=== PATIENT | female | born 1990 | race African-American/Black ===

== ENCOUNTER 2025-01-01 04:48 | Inpatient (IN) | payer MEDICAID, OTHER ==
[~2025-01-01] VITALS: Ht 170.2 cm; Wt 63.0 kg
[2025-01-01] MEDS: SODIUM CHLORIDE 0.9% 1,000 ML IVB ONE (05:00)
[2025-01-01] MEDS: ONDANSETRON HCL 4 MG/2 ML VIAL IV ONE (05:00)
--- NOTE | 2025-01-01 05:12 | ED.PDOC ---
History of Present Illness HPI Comments 34-year-old female is brought in by ambulance from prior residents for chief complaint of abdominal pain. Patient endorses on one-week history of pain following initial, unprovoked and atraumatic onset. Pain, suddenly, worsened this morning and radiates to her back. Associated nausea, 1x episode of vomiti ng, and diarrhea. History of similar pain with 'inflammation of the colon' diagnosis 1x year ago Significant history for hypertension-noncompliance with medications, open heart surgery in 2010, and hysterectomy and family history of cancer and hypertension. Per EMS personnel report, patient was found on scene with blood glucose of 84 and a systolic pressure in the 180s. All remaining vitals were noted to have been stable and within normal limits. Patient denies having any bloody or bilious vomitus, bloody stools, constipation, urinary problems, or further acute symptoms at this time. 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 Family History Family History: Reviewed,noncontributory to illness, No family hx of Cancer, No family hx of Heart misti, No family hx ofKidney misti, No family hx of Liver misti, No family hx of Lung misti, No family hx of Stroke, Family hx of Cancer, Family hx of HTN Social History Smoker: Non-Smoker Alcohol: Occasionally Drugs: Denies Drug Use Lives In: Home Constitutional: denies: chills, diaphoresis, fatigue, fever, malaise, sweats, weakness, others EENTM: denies: blurred vision, double vision, ear bleeding, ear discharge, ear drainage, ear pain, ear ringing, eye pain, eye redness, hearing loss, mouth pain, mouth swelling, nasal discharge, nose bleeding, nose congestion, nose pain, photophobia, tearing, throat pain, throat swelling, voice changes, others Respiratory: denies: cough, hemoptysis, orthopnea, SOB at rest, shortness of breath, SOB with excertion, stridor, wheezing, others Cardiovascular: denies: chest pain, dizzy spells, diaphoresis, Dyspnea on exertion, edema, irregular heart beat, left arm pain, lightheadedness, palpitations, PND, syncope, others Gastrointestinal: reports: abdominal pain, diarrhea, nausea, vomiting; denies: abdomen distended, blood streaked bowels, constipated, dysphagia, difficulty swallowing, hematemesis, melena, poor appetite, poor fluid intake, rectal bleedi ng, rectal pain, others Genitourinary: denies: abnormal vagina bleeding, burning, dyspareunia, dysuria, flank pain, frequency, hematuria, incontinence, pain, , vagina discharge, urgency, others Neurological: denies: dizziness, fainting, headache, left sided numbness, left sided weakness, numbness, paresthesia, pre-existing deficit, right sided numbness, right sided weakness, seizure, speech problems, tingling, tremors, weakness, others Musculoskeletal: reports: back pain; denies: gout, joint pain, joint swelling, muscle pain, muscle stiffness, neck pain, others Integumetry: denies: bruises, change in color, change in hair/nails, dryness, laceration, lesions, lumps, rash, wounds, others Allergic/Immunocompromised: denies: Difficulty Healing, Frequent Infections, Hives, Itching, others Hematologic/Lymphatic: denies: anemia, blood clots, easy bleeding, easy bruising, swollen glands, others Endocrine: denies: excessive hunger, excessive sweating, excessive thirst, excessive urination, flushing, intolerance to cold, intolerance to heat, unexplained weight gain, unexplained weight loss, others Psychiatric: denies: anxiety, bipolar disorder, depression, hopeless, panic disorder, schizophrenia, sleepless, suicidal, others All Other Systems: Reviewed and Negative Physical Exam General Appearance: Moderate Distress HEENT: Normal ENT Inspection, Pharynx Normal, TMs Normal Neck: Full Range of Motion, Non-Tender, Normal, Normal Inspection Respiratory: Chest Non-Tender, Lungs Clear, No Accessory Muscle Use, No Respiratory Distress, Normal Breath Sounds Cardiovascular: No Edema, No JVD, No Murmur, No Gallop, Normal Peripheral Pulses, Regular Rate/Rhythm Breast Exam: Deferred Gastrointestinal: No Organomegaly, No Pulsatile Mass, Normal Bowel Sounds, Soft, Suprapubic, Tenderness Genitalia: Deferred Pelvic: Deferred Rectal: Deferred Extremities: No calf tenderness, Normal capillary refill, Normal inspection, Normal range of motion, Non-tender, No pedal edema Musculoskeletal : Apperance: Normal Neurologic: Alert, wool hat finisher II-XII nml as Tested, Motor Weakness, Normal Affect, Normal Mood, No Sensory Deficits Cerebellar Function: Normal Reflexes: Normal Skin: Dry, Normal Color, Warm Lymphatic: No Adenopathy Was a procedure done? Was a procedure done?: No Differential Dx Considerations may include: Gastritis, gastroenteritis, colitis, GERD, cholelithiasis, cholecystitis, viral syndrome, spoke food, , among others X-Ray, Labs, Meds, VS Vital Signs Date Time Temp Pulse Resp B/P (MAP) Pulse Ox O2 Delivery O2 Flow Rate FiO2 01/01/25 05:30 Room Air* 0 21 01/01/25 05:25 151/116 01/01/25 05:23 86 12 151/116 01/01/25 05:10 86 12 151/116 (128) 97 01/01/25 04:53 98.9 72 15 188/117 100 98.9 Lab Test 01/01/25 05:11 Range/Units White Blood Count 7.6 4.4-10.8 10^3/uL Red Blood Count 5.28 H 4.0-5.20 10^6/uL Hemoglobin 12.2 12.2-16.2 g/dL Hematocrit 38.1 36.0-46.0 % Mean Corpuscular Volume 72.1 L 80.0-100.0 fL Mean Corpuscular Hemoglobin 23.1 L 28.0-32.0 pg Mean Corpuscular Hemoglobin Concent 32.1 32.0-36.0 g/dL Red Cell Distribution Width 15.6 H 11.8-14.3 % Platelet Count 353 140-450 10^3/uL Mean Platelet Volume 8.6 6.9-10.8 fL Neutrophils (%) (Auto) 60.5 37.0-80.0 % Lymphocytes (%) (Auto) 29.3 10.0-50.0 % Monocytes (%) (Auto) 6.9 0.0-12.0 % Eosinophils (%) (Auto) 2.5 0.0-7.0 % Basophils (%) (Auto) 0.8 0.0-2.0 % Neutrophils # (Auto) 4.6 1.6-8.6 10 ^3/uL Lymphocytes # (Auto) 2.2 0.4-5.4 10 ^3/uL Monocytes # (Auto) 0.5 0-1.3 10 ^3/uL Eosinophils # (Auto) 0.2 0-0.8 10 ^3/uL Basophils # (Auto) 0.1 0-0.2 10 ^3/uL Nucleated Red Blood Cells 0.1 % Sodium Level 141 136-145 mmol/L Potassium Level 3.8 3.5-5.1 mmol/L Chloride Level 106 98-107 mmol/L Carbon Dioxide Level 22 20-31 mmol/L Anion Gap 13 5-15 Blood Urea Nitrogen 8 L 9-23 mg/dL Creatinine 0.84 0.550-1.02 mg/dL Glomerular Filtration Rate Calc 93 >90 mL/min BUN/Creatinine Ratio 9.5 L 10.0-20.0 Serum Glucose 84 74-106 mg/dL Calcium Level 9.0 8.7-10.4 mg/dL Total Bilirubin 0.2 0.2-1.0 mg/dL Aspartate Amino Transferase (AST) 18 13-40 U/L Alanine Aminotransferase (ALT) 14 7-40 U/L Alkaline Phosphatase 65 46-116 U/L Total Protein 7.2 5.7-8.2 g/dL Albumin 4.1 3.2-4.8 g/dL Current Medications Medications (Trade) Dose Ordered Sig/Ulises Route Start Time Stop Time Status Last Admin Ondansetron HCl (Zofran) 4 mg ONCE ONCE IV 01/01/25 05:00 01/01/25 05:01 DC 01/01/25 05:00 Sodium Chloride 1,000 ml @ 1,000 mls/hr Q1H ONCE IVB 01/01/25 05:00 01/01/25 05:59 01/01/25 05:00 Morphine Sulfate 4 mg ONCE ONCE IV 01/01/25 05:00 01/01/25 05:01 DC 01/01/25 05:23 Hydralazine HCl (Apresoline Injection) 20 mg ONCE ONCE IV 01/01/25 05:30 01/01/25 05:31 DC 01/01/25 05:25 The CAT scan of the abdomen and pelvis is pending. When the patient arrived she was extremely hypertensive The patient was given hydralazine 20 mg IV push For the pain the patient was given Zofran 4 mg IV push and Zofran 4 mg IV push for the nausea The patient is being bolused with normal saline. The patient is still having pain The patient will be admitted to the hospitalist The CAT scan of the abdomen and pelvis will be followed up by the hospitalist Of course there is a concern that the patient may have colitis or diverticulitis The patient is being admitted Images Reviewed?: Images reviewed and evaluated by me Time of 1ST Reevaluation: 05:20 Reevaluation 1ST: Unchanged Patient Education/Counseling: Diagnosis, Treatment, Prognosis Family Education/Counseling: No Family Present SEPSIS Sepsis Screen Date sepsis recognized/suspect: Jan 01, 2025 Time Sepsis recognized/suspect: 450 Recent Procedure: No On Antibiotic Therapy: No Respiratory Rate >20: No Heart Rate >90: No Temp<36 C (96.8 F) or >38.3 C: No SBP <90 or MAP <65 mmHG: No New Acute Mental Status Change: No Is the patient on CPAP, BIPAP,: No Physician Orders Urinalysis (01/01/25 04:58) Sodium Chloride 0.9% (01/01/25 05:00) Ct Ab Pel Wo Con-No Oral Or Iv (01/01/25 04:58) Heplock Iv (01/01/25 04:58) Vital Signs Date Time Temp Pulse Resp B/P (MAP) Pulse Ox O2 Delivery O2 Flow Rate FiO2 01/01/25 05:30 Room Air* 0 21 01/01/25 05:25 151/116 01/01/25 05:23 86 12 151/116 01/01/25 05:10 86 12 151/116 (128) 97 01/01/25 04:53 98.9 72 15 188/117 100 98.9 Laboratory Tests Test 01/01/25 05:11 White Blood Count 7.6 10^3/uL (4.4-10.8) Medications Medications Dose Ordered Sig/Ulises Route Start Time Stop Time Status Last Admin Dose Admin Hydralazine HCl 20 mg ONCE ONCE IV 01/01/25 05:30 01/01/25 05:31 DC 01/01/25 05:25 Morphine Sulfate 4 mg ONCE ONCE IV 01/01/25 05:00 01/01/25 05:01 DC 01/01/25 05:23 Ondansetron HCl 4 mg ONCE ONCE IV 01/01/25 05:00 01/01/25 05:01 DC 01/01/25 05:00 Sodium Chloride 1,000 ml @ 1,000 mls/hr Q1H ONCE IVB 01/01/25 05:00 01/01/25 05:59 01/01/25 05:00 Departure 1 Departure Time of Disposition: 05:58 Impression: Primary Impression: Intractable abdominal pain Additional Impression: Accelerated hypertension Disposition: ADMITTED INPATIENT Admit to: Med Surg Condition: Fair Critical Care Note Critical Care Time?: No Stability Stability form required: Yes Unstable for transfer: ED Physician Assesment (Clinical assesment) Heart Score Heart Score: Heart Score Response (Comments) Value History N/A 0 EKG N/A 0 Age N/A 0 Risk Factors N/A 0 Troponin N/A 0 Total 0 I personally scribed for CAITLIN LANDIN MD ([email or web address]) on 01/01/25 at 05:12. Electronically submitted by Demetrius Loaiza ([email or web address]). CAITLIN LANDIN MD Jan 01, 2025 05:12
[2025-01-01] MEDS: MORPHINE SULFATE 4 MG/ML SYR/VIAL IV ONE (05:23)
[2025-01-01] MEDS: hydrALAZINE HCL 20 MG/ML VL IV ONE (05:25)
[2025-01-01 05:33] LABS: Mean Corpuscular Volume 72.1 fL (80.0-100.0); Nucleated Red Blood Cells % 0.1 %
[2025-01-01 05:35] LABS: Hematocrit 38.1 % (36.0-46.0); Hemoglobin 12.2 g/dL (12.2-16.2); Mean Corpuscular Hemoglobin 23.1 pg (28.0-32.0)
[2025-01-01 05:45] LABS: Alanine Aminotransferase 14 U/L (7-40); Albumin 4.1 g/dL (3.2-4.8); Alkaline Phosphatase 65 U/L (46-116); Anion Gap 13 (5-15); BUN/Creatinine Ratio 9.5 (10.0-20.0); Calcium 9.0 mg/dL (8.7-10.4); Carbon Dioxide 22 mmol/L (20-31); Chloride 106 mmol/L (98-107); Glucose 84 mg/dL (74-106); Potassium 3.8 mmol/L (3.5-5.1); Sodium 141 mmol/L (136-145); Total Protein 7.2 g/dL (5.7-8.2)
[2025-01-01 05:49] LABS: Bilirubin, Total 0.2 mg/dL (0.2-1.0); Blood Urea Nitrogen 8 mg/dL (9-23)
--- NOTE | 2025-01-01 06:18 | DVH ---
Exam: CT CT AB PEL WO CON-NO ORAL OR IV History: pain Comparison Study: None Technique: Multidetector spiral CT of the abdomen and pelvis was performed from lung bases to pubic symphysis. Imaging was performed without intravenous contrast. Coronal and sagittal multiplanar reformats were obtained from the axial data set by the technologist. Radiation Dose : 1. Abdomen/Pelvis: CTDIvol 6.54 mGy, DLP 352.64 mGy*cm. Findings: Evaluation of vasculature and solid organs is limited due to lack of intravenous contrast use. Lung Bases: Lung bases are clear. Visualized portions of the heart and pericardium are unremarkable. Liver: The liver is normal in size. No focal lesions. Gallbladder and Biliary Tree: The gallbladder is unremarkable. No intrahepatic or extrahepatic biliary ductal dilatation. Spleen: Unremarkable Pancreas: The pancreas is grossly unremarkable. Adrenal Glands: Unremarkable Kidneys: Kidneys are unremarkable without calculi or hydronephrosis. GI tract: The stomach is grossly normal in appearance. No evidence of small bowel wall thickening or abnormal dilatation to suggest bowel obstruction. There is mucosal thickening of the entire colon with fat stranding and increased pericolonic vascularity. Normal caliber appendix. Peritoneum/mesentery/retroperitoneum. No evidence of free intraperitoneal air. No ascites. No evidence of suspicious lymphadenopathy. Abdominal Wall: Unremarkable. Vasculature: The visualized abdominal aorta is normal in size and caliber. Evaluation of abdominal and pelvic vessels is limited due to lack of intravenous contrast. Urinary Bladder: Grossly unremarkable for degree of distention. Pelvic Organs: Uterus not visualized. Musculoskeletal: No aggressive focal bony lesions, acute fractures or dislocation. IMPRESSION: 1. Mucosal thickening of the entire colon with fat stranding and increased pericolonic vascularity. 2. Findings are suggestive of infectious or inflammatory colitis.
[2025-01-01 07:56] VITALS: RESP 17; O2SAT 99
[2025-01-01] MEDS ORDERED: AMLO1TAB22 PO (08:26)
[2025-01-01] MEDS ORDERED: HYDR-2792 PO (08:26)
--- NOTE | 2025-01-01 08:27 | DVHHP2 ---
History of Present Illness Reason for Visit: Abdominal Pain History of Present Illness Lucy Sanchez is a 34-year-old female with past medical history of hypertension and colitis, who came to the hospital for abdominal pain. Patient states her pain began last week Tuesday12/18/2024. She states she came to the hospital due to the pain not subsiding and increasing in intensity as well as diarrhea. Denies any nausea or vomiting. Patient states she does have antihypertensives, but that she is not always compliant with taking them. Patient states she was seen in the hospital last July for colitis as well. Cardiovascular: HTN GI: Other (Colitis) Past Surgical History: (x 4), Other (Open heart surgery to fix PFO) Smoke: Quit (2 months ago) ALCOHOL: rare Drugs: None Lives: with Family Domestic Violence: Neg Review of Systems Constitutional: No: Fever, Chills, Sweats, Weakness, Malaise, Other Eyes: No: Pain, Vision change, Conjunctivae inflammation, Eyelid inflammation, Other, Redness ENT: No: Ear pain, Ear discharge, Nose pain, Nose discharge, Nose congestion, Mouth pain, Mouth swelling, Throat pain, Throat swelling, Other Respiratory: No: Cough, Dry, Shortness of breath, SOB with excertion, Wheezing, Hemoptysis, Pleuritic Pain, Sputum, Wheezing, Other Cardiovascular: No: Chest Pain, Palpitations, Orthopnea, Paroxysmal Noc. Dyspnea, Edema, Lt Headedness, Other Gastrointestinal: Abdominal Pain, Diarrhea; No: Nausea, Vomiting, Constipation, Melena, Hematochezia, Other Genitourinary: No Dysuria, No Frequency, No Incontinence, No Hematuria, No Retention, No Other Musculoskeletal: No: other, neck pain, shoulder pain, arm pain, back pain, hand pain, leg pain, foot pain Skin: No: Rash, Lesions, Jaundice, Bruising, Other Neurological: No: Weakness, Numbness, Incoordination, Change in speech, C onfusion, Seizures, Other Allergies: Coded Allergies: NO KNOWN ALLERGIES (Unverified , 01/01/25) Exam Vital Signs Vital Signs Date Time Temp Pulse Resp B/P (MAP) Pulse Ox O2 Delivery O2 Flow Rate FiO2 01/01/25 07:05 97.8 92 19 97/53 (68) 97 97.8 01/01/25 05:30 Room Air* 0 21 General Appearance: Alert, Oriented X3, Cooperative, mild distress HEENT: Atraumatic, PERRLA, Mucous membr. moist/pink Respiratory: Clear to auscultation, Normal air movement Cardiovascular: Regular rate, Normal S1, Normal S2, No murmurs Abdominal: Normal bowel sounds, Soft, Other (LLQ tenderness) Extremities: No clubbing, No cyanosis, No edema, Normal pulses, No tenderne ss/swelling Skin: No rashes, No breakdown, No significant lesion Neuro: Normal gait, Normal speech, Strength at 5/5 X4 ext, Normal tone Psych/Mental Status: Mental status NL, Mood NL Labs/Xrays Labs Test 01/01/25 05:11 Range/Units White Blood Count 7.6 4.4-10.8 10^3/uL Red Blood Count 5.28 H 4.0-5.20 10^6/uL Hemoglobin 12.2 12.2-16.2 g/dL Hematocrit 38.1 36.0-46.0 % Mean Corpuscular Volume 72.1 L 80.0-100.0 fL Mean Corpuscular Hemoglobin 23.1 L 28.0-32.0 pg Mean Corpuscular Hemoglobin Concent 32.1 32.0-36.0 g/dL Red Cell Distribution Width 15.6 H 11.8-14.3 % Platelet Count 353 140-450 10^3/uL Mean Platelet Volume 8.6 6.9-10.8 fL Neutrophils (%) (Auto) 60.5 37.0-80.0 % Lymphocytes (%) (Auto) 29.3 10.0-50.0 % Monocytes (%) (Auto) 6.9 0.0-12.0 % Eosinophils (%) (Auto) 2.5 0.0-7.0 % Basophils (%) (Auto) 0.8 0.0-2.0 % Neutrophils # (Auto) 4.6 1.6-8.6 10 ^3/uL Lymphocytes # (Auto) 2.2 0.4-5.4 10 ^3/uL Monocytes # (Auto) 0.5 0-1.3 10 ^3/uL Eosinophils # (Auto) 0.2 0-0.8 10 ^3/uL Basophils # (Auto) 0.1 0-0.2 10 ^3/uL Nucleated Red Blood Cells 0.1 % Sodium Level 141 136-145 mmol/L Potassium Level 3.8 3.5-5.1 mmol/L Chloride Level 106 98-107 mmol/L Carbon Dioxide Level 22 20-31 mmol/L Anion Gap 13 5-15 Blood Urea Nitrogen 8 L 9-23 mg/dL Creatinine 0.84 0.550-1.02 mg/dL Glomerular Filtration Rate Calc 93 >90 mL/min BUN/Creatinine Ratio 9.5 L 10.0-20.0 Serum Glucose 84 74-106 mg/dL Calcium Level 9.0 8.7-10.4 mg/dL Total Bilirubin 0.2 0.2-1.0 mg/dL Aspartate Amino Transferase (AST) 18 13-40 U/L Alanine Aminotransferase (ALT) 14 7-40 U/L Alkaline Phosphatase 65 46-116 U/L Total Protein 7.2 5.7-8.2 g/dL Albumin 4.1 3.2-4.8 g/dL Exam: CT CT AB PEL WO CON-NO ORAL OR IV Findings: Evaluation of vasculature and solid organs is limited due to lack of intravenous contrast use. Lung Bases: Lung bases are clear. Visualized portions of the heart and p ericardium are unremarkable. Liver: The liver is normal in size. No focal lesions. Gallbladder and Biliary Tree: The gallbladder is unremarkable. No intrahepatic or extrahepatic biliary ductal dilatation. Spleen: Unremarkable Pancreas: The pancreas is grossly unremarkable. Adrenal Glands: Unremarkable Kidneys: Kidneys are unremarkable without calculi or hydronephrosis. GI tract: The stomach is grossly normal in appearance. No evidence of small bowel wall thickening or abnormal dilatation to suggest bowel obstruction. There is mucosal thickening of the entire colon with fat stranding and increased pericolonic vascularity. Normal caliber appendix. Peritoneum/mesentery/retroperitoneum. No evidence of free intraperitoneal air. No ascites. No evidence of suspicious lymphadenopathy. Abdominal Wall: Unremarkable. Vasculature: The visualized abdominal aorta is normal in size and caliber. Evaluation of abdominal and pelvic vessels is limited due to lack of intravenous contrast. Urinary Bladder: Grossly unremarkable for degree of distention. Pelvic Organs: Uterus not visualized. Musculoskeletal: No aggressive focal bony lesions, acute fractures or dislocation. IMPRESSION: 1. Mucosal thickening of the entire colon with fat stranding and increased pericolonic vascularity. 2. Findings are suggestive of infectious or inflammatory colitis. SEPSIS Sepsis Screen Date sepsis recognized/suspect: Jan 01, 2025 Time Sepsis recognized/suspect: 529 Recent Procedure: No On Antibiotic Therapy: No Respiratory Rate >20: No Heart Rate >90: No Temp<36 C (96.8 F) or >38.3 C: No SBP <90 or MAP <65 mmHG: No New Acute Mental Status Change: No Is the patient on CPAP, BIPAP,: No Physician Orders Urinalysis (01/01/25 04:58) Ct Ab Pel Wo Con-No Oral Or Iv (01/01/25 04:58) Heplock Iv (01/01/25 04:58) Admit (01/01/25 08:22) Code Status (01/01/25 08:22) Hydrocodone-Acet 5/325mg Tab (Stow 5/32 (01/01/25 08:30) Ondansetron Hcl (Zofran) (01/01/25 08:30) Docusate Sodium Capsule (Colace Capsule) (01/01/25 08:30) Complete Blood Count (01/02/25 04:00) Comprehensive Metabolic Panel (01/02/25 04:00) Condition: Serious (01/01/25 08:22) Acetaminophen Tablet (Tylenol Tablet) (01/01/25 08:30) Clear Liq Diet (01/01/25 Breakfast) Morphine Sulfate Injection (01/01/25 08:30) NS (01/01/25 08:30) NS (01/01/25 08:30) Metronidazole Ivpb Flagyl (01/01/25 14:00) Ceftriaxone Ivpb Rocephin (01/01/25 09:00) Vital Signs Date Time Temp Pulse Resp B/P (MAP) Pulse Ox O2 Delivery O2 Flow Rate FiO2 01/01/25 07:05 97.8 92 19 97/53 (68) 97 97.8 01/01/25 05:30 Room Air* 0 21 01/01/25 05:25 151/116 01/01/25 05:23 86 12 151/116 01/01/25 05:10 86 12 151/116 (128) 97 01/01/25 04:53 98.9 72 15 188/117 100 98.9 Laboratory Tests Test 01/01/25 05:11 White Blood Count 7.6 10^3/uL (4.4-10.8) Medications Medications Dose Ordered Sig/Ulises Route Start Time Stop Time Status Last Admin Dose Admin Hydralazine HCl 20 mg ONCE ONCE IV 01/01/25 05:30 01/01/25 05:31 DC 01/01/25 05:25 20 MG Metronidazole 100 ml @ 100 mls/hr ONCE ONCE IV 01/01/25 06:30 01/01/25 07:29 DC 01/01/25 06:52 100 MLS/HR Morphine Sulfate 4 mg ONCE ONCE IV 01/01/25 05:00 01/01/25 05:01 DC 01/01/25 05:23 4 MG Ondansetron HCl 4 mg ONCE ONCE IV 01/01/25 05:00 01/01/25 05:01 DC 01/01/25 05:00 4 MG Sodium Chloride 1,000 ml @ 1,000 mls/hr Q1H ONCE IVB 01/01/25 05:00 01/01/25 05:59 DC 01/01/25 05:00 1,000 MLS/HR Assessment/Plan Assessment/Plan Assessment: Colitis, Intractable abdominal pain, Uncontrolled hypertension, Plan: Admit to Med-Surg, Consider GI consult if symptoms worsen, IV antibiotics, IV hydration, Clear liquid diet, Home medications reconciled, Plan discussed with: Patient My Orders Orders - CALLIE SIERRAP Procedure Category Date Status Time Admit ADMIT 01/01/25 Verified 08:22 Code Status CODE 01/01/25 Verified 08:22 Hydrocodone-Acet PHA 01/01/25 Verified 5/325mg Tab (Stow 08:30 Ondansetron Hcl PHA 01/01/25 Verified (Zofran) 08:30 Docusate Sodium PHA 01/01/25 Verified Capsule (Colace 08:30 Complete Blood Count LAB 01/02/25 Verified 04:00 Comprehensive LAB 01/02/25 Verified Metabolic Panel 04:00 Condition: Serious LOWELL 01/01/25 Verified 08:22 Acetaminophen Tablet PHA 01/01/25 Verified (Tylenol Tablet) 08:30 Clear Liq Diet DIET 01/01/25 Verified Breakfast Morphine Sulfate PHA 01/01/25 Verified Injection 08:30 NS PHA 01/01/25 Verified 08:30 NS PHA 01/01/25 Verified 08:30 Metronidazole Ivpb PHA 01/01/25 Verified Flagyl 14:00 Ceftriaxone Ivpb PHA 01/01/25 Verified Rocephin 09:00 Date of Service: Jan 01, 2025 Billing Provider: CALLIE SIERRA Common Visit Codes: [id number] INP/OBS CARE (MOD) CALLIE SIERRA Jan 01, 2025 08:27
[2025-01-01] MEDS ORDERED: DOCUSATE SOD 100 MG CAP PO PRN (08:30)
[2025-01-01] MEDS: SODIUM CHLORIDE 0.9% 1,000 ML IV ONE ×2 (09:05→09:06)
[2025-01-01 09:30] VITALS: BP 136/93; PULSE 91; RESP 16; TEMP 98.7; O2SAT 99
[2025-01-01 09:42] VITALS: BP 135/85; PULSE 65; RESP 18; TEMP 98.1; O2SAT 97
[2025-01-01] MEDS: MORPHINE SULFATE INJ 2 MG/ml SYRG IV PRN (09:50)
[2025-01-01] MEDS: HYDROcodone-ACET 5/325MG TAB PO PRN (13:14)
[2025-01-01 13:37] VITALS: BP 143/99; PULSE 86; RESP 16; TEMP 98.2; O2SAT 98
[2025-01-01 14:57] LABS: Urine Protein, UAD Negative (Negative)
[2025-01-01 16:57] VITALS: BP 130/92; PULSE 90; RESP 20; TEMP 98.2; O2SAT 100
[2025-01-01 21:00] VITALS: BP 130/89; PULSE 92; RESP 17; TEMP 97.5; O2SAT 99
[2025-01-02 05:00] VITALS: BP 123/72; PULSE 82; RESP 17; TEMP 98.2; O2SAT 95
[2025-01-02 06:38] LABS: Hematocrit 36.3 % (36.0-46.0); Hemoglobin 11.8 g/dL (12.2-16.2); Mean Corpuscular Hemoglobin 23.3 pg (28.0-32.0); Mean Corpuscular Volume 71.4 fL (80.0-100.0); Nucleated Red Blood Cells % 0.0 %
[2025-01-02 06:45] VITALS: BP 125/79; PULSE 94; RESP 18; TEMP 98.6; O2SAT 97
[2025-01-02 06:58] LABS: Alanine Aminotransferase 11 U/L (7-40); Albumin 3.7 g/dL (3.2-4.8); Alkaline Phosphatase 60 U/L (46-116); Anion Gap 10 (5-15); Calcium 8.7 mg/dL (8.7-10.4); Carbon Dioxide 24 mmol/L (20-31); Chloride 105 mmol/L (98-107); Glucose 82 mg/dL (74-106); Sodium 139 mmol/L (136-145); Total Protein 6.6 g/dL (5.7-8.2)
[2025-01-02 06:59] LABS: Bilirubin, Total 0.6 mg/dL (0.2-1.0)
[2025-01-02 07:01] LABS: BUN/Creatinine Ratio 6.6 (10.0-20.0); Blood Urea Nitrogen < 5 mg/dL (9-23); Potassium 3.3 mmol/L (3.5-5.1)
[2025-01-02 08:51] VITALS: BP 119/77; PULSE 94; RESP 18; TEMP 98.6; O2SAT 98
[2025-01-02] MEDS: ONDANSETRON HCL 4 MG/2 ML VIAL IV PRN (10:26)
--- NOTE | 2025-01-02 12:13 | DVHPN2 ---
Subjective The patient seen and examined at bedside. No complains today. states that she feel better. Less diarrhea. Hungry and want real food. She is tolerate clear liquid diet. Reviewed: Care Plan, H&P, Labs, Medications, Previous Orders, Radiology Changes from previous H/P or p: No Changes Eyes: No Pain, No Vision change, No Conjunctivae inflammation, No Eyelid inflammation, No Other, No Redness ENT: No Ear pain, No Ear discharge, No Nose pain, No Nose discharge, No Nose congestion, No Mouth pain, No Mouth swelling, No Throat pain, No Throat swelling, No Other Cardiovascular: No Chest Pain, No Palpitations, No Orthopnea, No Paroxysmal Noc. Dyspnea, No Edema, No Lt Headedness, No Other Respiratory: No Cough, No Dry, No Shortness of breath, No SOB with excertion, No Wheezing, No Hemoptysis, No Pleuritic Pain, No Sputum, No Other Gastrointestinal: No Nausea, No Vomiting; Abdominal Pain, Diarrhea; No Constipation, No Melena, No Hematochezia, No Other Genitourinary: No Dysuria, No Frequency, No Incontinence, No Hematuria, No Retention, No Other Musculoskeletal: No other, No neck pain, No shoulder pain, No arm pain, No back pain, No hand pain, No leg pain, No foot pain Skin: No Rash, No Lesions, No Jaundice, No Bruising, No Other Objective Vitals Vital Signs Date Time Temp Pulse Resp B/P (MAP) Pulse Ox O2 Delivery O2 Flow Rate FiO2 01/02/25 10:22 119/77 01/02/25 08:51 98.6 94 18 98 98.6 01/02/25 08:00 Room Air* 0 21 Intake/Output Intake and Output 01/02/25 07:00 Intake Total 350 ml Balance 350 ml Intake IV Total 350 ml # Voids 3 General Appearance: Alert, Oriented X3, Cooperative, No acute distress HEENT: Atraumatic, PERRLA, EOMI, Mucous membr. moist/pink Neck: Supple Lungs: Clear to auscultation, Normal air movement Cardiovascular: Regular rate, Normal S1, Normal S2, No murmurs, Gallops, Rubs Abdomen: Normal bowel sounds, Soft, No tenderness Neuro: Cranial nerves 3-12 NL Psych/Mental Status: Mental status NL Medications Current Medications Medications Dose Ordered Sig/Ulises Route Start Time Stop Time Status Last Admin Dose Admin Acetaminophen/ Hydrocodone Bitart 1 tab Q4HP PRN PO 01/01/25 08:30 01/02/25 10:21 1 TAB Ondansetron HCl 4 mg Q4HP PRN IV 01/01/25 08:30 01/02/25 10:26 4 MG Docusate Sodium 100 mg BIDPRN PRN PO 01/01/25 08:30 Acetaminophen 650 mg Q6HP PRN PO 01/01/25 08:30 Morphine Sulfate 2 mg Q4HPRN PRN IV 01/01/25 08:30 01/01/25 09:50 2 MG Metronidazole 100 ml @ 100 mls/hr Q8HR IV 01/01/25 14:00 01/02/25 05:25 100 MLS/HR Ceftriaxone Sodium 50 ml @ 100 mls/hr DAILY@09 IV 01/01/25 09:00 01/02/25 11:02 100 MLS/HR Amlodipine Besylate 5 mg DAILY PO 01/01/25 10:00 01/02/25 10:22 5 MG Hydralazine HCl 20 mg QID PO 01/01/25 12:00 01/02/25 05:25 20 MG Laboratory Results Laboratory Tests 01/02/25 05:55 Chemistry Test 01/02/25 05:55 Albumin 3.7 g/dL (3.2-4.8) Calcium Level 8.7 mg/dL (8.7-10.4) Total Protein 6.6 g/dL (5.7-8.2) LFT Test 01/02/25 05:55 Alanine Aminotransferase (ALT) 11 U/L (7-40) Alkaline Phosphatase 60 U/L (46-116) Aspartate Amino Transferase (AST) 15 U/L (13-40) Total Bilirubin 0.6 mg/dL (0.2-1.0) Urinalysis Test 01/01/25 13:30 Urine Color Light-yellow (Yellow) Urine Clarity Turbid (Clear) H Urine pH 6.5 (5.0-9.0) Urine Specific [place] 1.014 (1.001-1.035) Urine Protein Negative (Negative) Urine Ketones Negative (Negative) Urine Blood Negative /uL (Negative) Urine Nitrite Negative (Negative) Urine Bilirubin Negative (Negative) Urine Urobilinogen Normal mg/dL (Negative) Urine Leukocyte Esterase Negative /uL (Negative) Urine RBC 1 /hpf (0 - 4) Urine Microscopic WBC 5 /HPF (0-5) Urine Squamous Epithelial Cells Mod /hpf (<5) Urine Bacteria None seen /hpf (None Seen) Urine Mucus Few (None Seen) Urine Glucose Normal mg/dL (Normal) Labs and/or images reviewed: Labs reviewed by me Assessment/Plan Assessment/Plan Colitis, Intractable abdominal pain, Uncontrolled hypertension, Continue current management. GI consult Advance diet. Continue IV antibiotic: rocephin and flagyl Pain meds. Advance diet to soft regular diet. Continue IV zofran. Plan discussed with: Patient My Orders Orders - NIKA CABRALES MD Procedure Category Date Status Time Soft Diet DIET 01/02/25 Transmitted Lunch Date of Service: Jan 02, 2025 Billing Provider: NIKA CABRALES MD Common Visit Codes: [id number] INP/OBS CARE(HIGH) NIKA CABRALES MD Jan 02, 2025 12:13
[2025-01-02 12:37] VITALS: BP 131/91; PULSE 91; RESP 18; TEMP 98.1; O2SAT 98
[2025-01-02 16:44] VITALS: BP 124/74; PULSE 104; RESP 19; TEMP 98.9; O2SAT 100
[2025-01-02 21:00] VITALS: BP 126/87; PULSE 99; RESP 17; TEMP 98.1; O2SAT 98
[2025-01-02] MEDS: ACETAMINOPHEN 325 MG TAB PO PRN (21:04)
[2025-01-03 01:00] VITALS: BP 118/81; PULSE 87; RESP 17; TEMP 97.9; O2SAT 97
[2025-01-03 05:00] VITALS: BP 127/89; PULSE 89; RESP 17; TEMP 98.6; O2SAT 96
[2025-01-03 09:00] VITALS: BP 125/91; PULSE 95; RESP 17; TEMP 97.8; O2SAT 97
--- NOTE | 2025-01-03 09:42 | DVHINCON2 ---
Date of service: Jan 03, 2025 Referring Physician Cheryl Reason for Consultation Colitis History of Present Illness Patient is a 34-year-old female with past medical history significant for hypertension, PFO, colitis in the past July where she was hospitalized at an outside facility, was treated with antibiotics and discharge. Patient was not told what the cause of her colitis was. Patient denies prior history of colono scopy. Patient is which she was have lower abdominal pain with occasional blood with cramping and loose stools. Patient denies any travel history, ill contacts, diagnosis of inflammatory bowel disease, recent antibiotic use. GI consultation was obtained for evaluation. Imaging shows reeves colitis. Past Medical History As above Past Surgical History PFO section Family History: Cancer of maxillary sinus G8 FATHER FH: cancer of GI tract G8 MOTHER Hypertension G8 MOTHER Family History Colon cancer in maternal grandmother Social History No significant tobacco, alcohol, recreational drug use Allergies: Coded Allergies: NO KNOWN ALLERGIES (Unverified , 01/01/25) Home Meds Reported Medications Hydralazine Hcl (Hydralazine Hcl) 10 Mg Tab, 2 TAB PO QID 01/01/25 Amlodipine Besylate (Amlodipine Besylate) 5 Mg Tab, 1 TAB PO DAILY 01/01/25 Review of Systems Review of systems as per HPI Vital Signs Vital Signs Date Time Temp Pulse Resp B/P (MAP) Pulse Ox O2 Delivery O2 Flow Rate FiO2 01/03/25 07:57 Room Air* 0 21 01/03/25 06:46 127/92 01/03/25 05:00 98.6 89 17 96 98.6 Physical Exam General: Alert and oriented x4 no distress HEENT: NC/AT EOMI PERRLA op clear heart regular rate and rhythm abdomen soft nontender nondistended extremely no clubbing cyanosis or edema Labs/Diagnostic Data Labs Test 01/02/25 05:55 01/01/25 13:30 Range/Units White Blood Count 7.0 4.4-10.8 10^3/uL Red Blood Count 5.08 4.0-5.20 10^6/uL Hemoglobin 11.8 L 12.2-16.2 g/dL Hematocrit 36.3 36.0-46.0 % Mean Corpuscular Volume 71.4 L 80.0-100.0 fL Mean Corpuscular Hemoglobin 23.3 L 28.0-32.0 pg Mean Corpuscular Hemoglobin Concent 32.6 32.0-36.0 g/dL Red Cell Distribution Width 15.6 H 11.8-14.3 % Platelet Count 326 140-450 10^3/uL Mean Platelet Volume 8.6 6.9-10.8 fL Neutrophils (%) (Auto) 67.5 37.0-80.0 % Lymphocytes (%) (Auto) 21.2 10.0-50.0 % Monocytes (%) (Auto) 8.1 0.0-12.0 % Eosinophils (%) (Auto) 2.5 0.0-7.0 % Basophils (%) (Auto) 0.7 0.0-2.0 % Neutrophils # (Auto) 4.8 1.6-8.6 10 ^3/uL Lymphocytes # (Auto) 1.5 0.4-5.4 10 ^3/uL Monocytes # (Auto) 0.6 0-1.3 10 ^3/uL Eosinophils # (Auto) 0.2 0-0.8 10 ^3/uL Basophils # (Auto) 0 0-0.2 10 ^3/uL Nucleated Red Blood Cells 0.0 % Sodium Level 139 136-145 mmol/L Potassium Level 3.3 L 3.5-5.1 mmol/L Chloride Level 105 98-107 mmol/L Carbon Dioxide Level 24 20-31 mmol/L Anion Gap 10 5-15 Blood Urea Nitrogen < 5 L 9-23 mg/dL Creatinine 0.76 0.550-1.02 mg/dL Glomerular Filtration Rate Calc 105 >90 mL/min BUN/Creatinine Ratio 6.6 L 10.0-20.0 Serum Glucose 82 74-106 mg/dL Calcium Level 8.7 8.7-10.4 mg/dL Total Bilirubin 0.6 0.2-1.0 mg/dL Aspartate Amino Transferase (AST) 15 13-40 U/L Alanine Aminotransferase (ALT) 11 7-40 U/L Alkaline Phosphatase 60 46-116 U/L Total Protein 6.6 5.7-8.2 g/dL Albumin 3.7 3.2-4.8 g/dL Urine Color Light-yellow Yellow Urine Clarity Turbid H Clear Urine pH 6.5 5.0-9.0 Urine Specific [place] 1.014 1.001-1.035 Urine Protein Negative Negative Urine Ketones Negative Negative Urine Blood Negative Negative /uL Urine Nitrite Negative Negative Urine Bilirubin Negative Negative Urine Urobilinogen Normal Negative mg/dL Urine Leukocyte Esterase Negative Negative /uL Urine RBC 1 0 - 4 /hpf Urine Microscopic WBC 5 0-5 /HPF Urine Squamous Epithelial Cells Mod <5 /hpf Urine Bacteria None seen None Seen /hpf Urine Mucus Few None Seen Urine Glucose Normal Normal mg/dL Assessment 1. Colitis suspicious for IBD 2. Abdominal pain Patient has improved on antibiotics alone at this time Problems(with codes): (1) Colitis (2) Intractable abdominal pain (3) Accelerated hypertension Plan/Recommendation 1. Continue with antibiotics 2. If patient continues to improve discharged home with outpatient follow up with GI for: Colonoscopy 3. If patient remains in-house was scheduled for colonoscopy in the next 1-2 days 4. Diet as tolerated 5. We will follow up Plan discussed with: Patient SUE FISHER MD Jan 03, 2025 09:42
--- NOTE | 2025-01-03 10:19 | DVHDS2 ---
Discharge Summary Date of Admission Jan 01, 2025 at 08:22 Date of Discharge: Jan 03, 2025 Admitting Diagnosis Colitis, Intractable abdominal pain, Uncontrolled hypertension, Labs/Diagnostic Data: Laboratory Results Test 01/02/25 05:55 01/01/25 13:30 White Blood Count 7.0 10^3/uL (4.4-10.8) Red Blood Count 5.08 10^6/uL (4.0-5.20) Hemoglobin 11.8 g/dL (12.2-16.2) Hematocrit 36.3 % (36.0-46.0) Mean Corpuscular Volume 71.4 fL (80.0-100.0) Mean Corpuscular Hemoglobin 23.3 pg (28.0-32.0) Mean Corpuscular Hemoglobin Concent 32.6 g/dL (32.0-36.0) Red Cell Distribution Width 15.6 % (11.8-14.3) Platelet Count 326 10^3/uL (140-450) Mean Platelet Volume 8.6 fL (6.9-10.8) Neutrophils (%) (Auto) 67.5 % (37.0-80.0) Lymphocytes (%) (Auto) 21.2 % (10.0-50.0) Monocytes (%) (Auto) 8.1 % (0.0-12.0) Eosinophils (%) (Auto) 2.5 % (0.0-7.0) Basophils (%) (Auto) 0.7 % (0.0-2.0) Neutrophils # (Auto) 4.8 10 ^3/uL (1.6-8.6) Lymphocytes # (Auto) 1.5 10 ^3/uL (0.4-5.4) Monocytes # (Auto) 0.6 10 ^3/uL (0-1.3) Eosinophils # (Auto) 0.2 10 ^3/uL (0-0.8) Basophils # (Auto) 0 10 ^3/uL (0-0.2) Nucleated Red Blood Cells 0.0 % Sodium Level 139 mmol/L (136-145) Potassium Level 3.3 mmol/L (3.5-5.1) Chloride Level 105 mmol/L (98-107) Carbon Dioxide Level 24 mmol/L (20-31) Anion Gap 10 (5-15) Blood Urea Nitrogen < 5 mg/dL (9-23) Creatinine 0.76 mg/dL (0.550-1.02) Glomerular Filtration Rate Calc 105 mL/min (>90) BUN/Creatinine Ratio 6.6 (10.0-20.0) Serum Glucose 82 mg/dL (74-106) Calcium Level 8.7 mg/dL (8.7-10.4) Total Bilirubin 0.6 mg/dL (0.2-1.0) Aspartate Amino Transferase (AST) 15 U/L (13-40) Alanine Aminotransferase (ALT) 11 U/L (7-40) Alkaline Phosphatase 60 U/L (46-116) Total Protein 6.6 g/dL (5.7-8.2) Albumin 3.7 g/dL (3.2-4.8) Urine Color Light-yellow (Yellow) Urine Clarity Turbid (Clear) Urine pH 6.5 (5.0-9.0) Urine Specific [place] 1.014 (1.001-1.035) Urine Protein Negative (Negative) Urine Ketones Negative (Negative) Urine Blood Negative /uL (Negative) Urine Nitrite Negative (Negative) Urine Bilirubin Negative (Negative) Urine Urobilinogen Normal mg/dL (Negative) Urine Leukocyte Esterase Negative /uL (Negative) Urine RBC 1 /hpf (0 - 4) Urine Microscopic WBC 5 /HPF (0-5) Urine Squamous Epithelial Cells Mod /hpf (<5) Urine Bacteria None seen /hpf (None Seen) Urine Mucus Few (None Seen) Urine Glucose Normal mg/dL (Normal) Other Laboratory Tests 01/02/25 05:55 Brief Hx & Hospital Course: This is a 34-year-old female with past medical history of hypertension and colitis, who came to the hospital for abdominal pain. Patient states her pain began last week Tuesday12/18/2024. She states she came to the hospital due to the pain not subsiding and increasing in intensity as well as diarrhea. Denies any nausea or vomiting. Patient states she does have antihypertensives, but that she is not always compliant with taking them. Patient states she was seen in the hospital last July for colitis as well. CT scan abdomen and pelvis show colitis. Patient was start on Flagyl and Rocephin IV. The patient also found to have HTN, restart her home meds help to keep BP normal. Advise him to compliance with HTN meds at home. The patient seen by GI specialist. Recommend antibiotic and outpatient colonoscopy in 3 -6 months. Today, she tolerate diet. Nausea and vomit one time but able to finish her food at lunch. So I am going to discharge patient home. Advise her to follow up with PCP 1-2 weeks. Follow up with GI specialist per schedule. Activity as tolerate, diet per home diet. Continue oral antibiotic x 10 days. Physical examination: General Appearance: Alert, Oriented X3, Cooperative, No acute distress HEENT: Atraumatic, PERRLA, EOMI, Mucous membr. moist/pink Neck: Supple Lungs: Clear to auscultation, Normal air movement Cardiovascular: Regular rate, Normal S1, Normal S2, No murmurs, Gallops, Rubs Abdomen: Normal bowel sounds, Soft, No tenderness Neuro: Cranial nerves 3-12 NL Psych/Mental Status: Mental status NL Condition at Discharge: Stable Final Diagnosis/Problems List Colitis, Intractable abdominal pain, Uncontrolled hypertension, Discharge Disposition: Home Discharge Instruct/Medications Scheduled Amlodipine Besylate (Amlodipine Besylate), 1 TAB PO DAILY, (Reported) Hydralazine Hcl (Hydralazine Hcl), 2 TAB PO QID, (Reported) Levofloxacin Hemihydrate (Levaquin 500 Mg), 1 TAB PO DAILY Metronidazole (Flagyl), 500 MG PO TID Discharge Statement: "Patient was advised to return to the ER or call 911 if any headaches, dizziness, shortness of breath, chest pain, abdominal pain, bleeding, fevers, or worsening of medical condition. Patient was counseled about treatment plan, medications, possible side effects, patientverbalized understanding. All questions were answered to the best of my ability. This discharge took greater then 30 minutes in planning, reviewing documentation, counseling the patient, and discussing with other team members." ASSESSMENT ASSESSMENT Assessment Date of Service: Jan 03, 2025 Billing Provider: NIKA CABRALES MD Common Visit Codes: 28207-AQA/OBS DISCH DAY >30min NIKA CABRALES MD Jan 03, 2025 10:19
[2025-01-03] MEDS ORDERED: LEVO500T91 PO (10:21)
[2025-01-03] MEDS ORDERED: METR-344 PO (10:21)
[2025-01-03 12:44] VITALS: BP 149/95
[2025-01-03 12:46] VITALS: BP 116/83; PULSE 101; RESP 18; TEMP 99.1; O2SAT 98
== END 2025-01-03 13:38 | disposition home or self-care (01) | DRG 249 ==
LOC: EDBD 04:48 → ER 04:48 → OVERFLOW 08:22 → EAST 01-02 06:35
PROVIDERS: ADMIT Internal Medicine; ATTEND Internal Medicine
DX: K52.9 Noninfective gastroenteritis and colitis, unspecified (principal); I10 Essential (primary) hypertension; Z90.710 Acquired absence of both cervix and uterus; Z91.148 Patient's other noncompliance with medication regimen for other reason; Z98.891 History of uterine scar from previous surgery; Z80.0 Family history of malignant neoplasm of digestive organs; Z80.2 Family history of malignant neoplasm of other respiratory and intrathoracic organs; Z82.49 Family history of ischemic heart disease and other diseases of the circulatory system; Z79.899 Other long term (current) drug therapy
CPT/HCPCS: 36415; 74176; 80053; 81001; 85025; 96361; 96365; 96375; G0378; J2405; J3490